=== PATIENT | female | born 1940 | race Caucasian/White ===

== ENCOUNTER 2019-06-15 05:48 | Emergency (ER) | payer MEDICARE, OTHER ==
[~2019-06-15] VITALS: Ht 162.6 cm; Wt 75.0 kg
[~2019-06-15 05:48] MED LIST: ALPR0.257 PO; AMLO5TAB4 PO; ATOR10TA PO; ATOR20TA37 PO; BISA10SU65 PR; BUPR75TA5 PO; CEFD300C37 PO; DENO60DI SC; DOCU100C33 PO; ENOX30DI3 SQ; ENOX40SY4 SQ; FLUO40CA2 PO; HYDR-3237 PO; HYDR-3240 PO; HYDR12.517 PO; METH500T7 PO; METO25TA35 PO; OLME20TA17 PO; OMEP20CA14 PO; POLY17PO5 PO; SOLI10TA2 PO; TEMA30CA PO; TRAM50TA2 PO
--- NOTE | 2019-06-15 06:08 | NUR ---
PT BIB [facility] FOR N/V/D THAT STARTED AT APPROX 0400. PT HAD 3 BOUTS OF DIARRHEA AND ABD PAIN. 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 PT HAS NO ILL CONTACTS. VSS. CALL LIGHT IN REACH
[2019-06-15] MEDS ORDERED: ONDANSETRON 2MG/ML, 2ML IVPush ONE (06:30)
[2019-06-15] MEDS ORDERED: SODIUM CHLORIDE FLUSH 10ML SYR IVF ONE (06:30)
[2019-06-15 06:46] LABS: BASOPHILS # (AUTO) 0.03 x10^3/uL (0-0.1); BASOPHILS % (AUTO) 0 % (0-1); EOSINOPHILS # (AUTO) 0.03 x10^3/uL (0-0.4); EOSINOPHILS % (AUTO) 0 % (1-7); LYMPHOCYTES # (AUTO) 1.16 x10^3/uL (1-3.4); LYMPHOCYTES % (AUTO) 10 % (22-44); MD NO; MEAN CORPUSCULAR HEMOGLOBIN 28.5 pg (27.0-34.8); MEAN CORPUSCULAR HGB CONC 32.6 g/dL (32.4-35.8); MEAN CORPUSCULAR VOLUME 87.5 fL (80-100); MEAN PLATELET VOLUME 6.7 fL (7.4-10.4); MONOCYTES # (AUTO) 0.58 x10^3/uL (0.2-0.8); MONOCYTES % (AUTO) 5 % (2-9); NEUTROPHILS # (AUTO) 9.83 x10^3/uL (1.8-6.8); NEUTROPHILS % (AUTO) 85 % (42-75); PLATELET COUNT 268 x10^3/uL (130-400); RED BLOOD COUNT 5.09 x10^6/uL (3.82-5.3); RED CELL DISTRIBUTION WIDTH 15.2 % (9.6-15.2)
[2019-06-15] MEDS ORDERED: ONDANSETRON 2MG/ML, 2ML ONE (06:47)
[2019-06-15 06:57] LABS: ALANINE AMINOTRANSFERASE 11 U/L (12-78); ALBUMIN 2.9 g/dL (3.4-5.0); ANION GAP 6 mmol/L (5-15); CALCIUM 9.6 mg/dL (8.5-10.1); CHLORIDE 107 mmol/L (98-107)
[2019-06-15 06:59] LABS: ALKALINE PHOSPHATASE 97 U/L (45-117); BILIRUBIN,TOTAL 0.4 mg/dL (0.2-1.0)
--- NOTE | 2019-06-15 07:10 | NUR ---
REPORT RECIEVED FROM LEILANI RN. PT RESTING ON GURNEY AT THIS TIME, DAUGHTER AT BEDSIDE. VSS, NAD NOTED
[2019-06-15 07:18] VITALS: BP 134/64
--- NOTE | 2019-06-15 07:45 | NUR ---
PT GIVEN WATER BY LIYA, PT ABLE TO KEEP WATER DOWN AT THIS TIME. PT TO DC HOME
--- NOTE | 2019-06-15 08:16 | NUR ---
Patient/Caregiver given discharge instructions and they have confirmed that they understand the instructions. Patient IN WHEELCHAIR, ESCORTED TO DC DESK, PT IN CARE OF DAUGHTER
== END 2019-06-15 08:18 | disposition home or self-care (01) ==
LOC: ED 07:39
DX: A08.4 Viral intestinal infection, unspecified (principal); I10 Essential (primary) hypertension; R10.9 Unspecified abdominal pain; F32.9 Major depressive disorder, single episode, unspecified; E78.5 Hyperlipidemia, unspecified
CPT/HCPCS: 36415; 80053; 83690; 85025; 96374; 99283; J2405

== ENCOUNTER 2020-11-11 02:03 | Emergency (ER) | payer MEDICARE, OTHER ==
[~2020-11-11] VITALS: Ht 162.6 cm; Wt 75.0 kg
[~2020-11-11 02:03] MED LIST changes: +HYDR-2214 PO; -HYDR-3240 PO; +METH-639 PO; -METH500T7 PO; -OMEP20CA14 PO; +OMEP20CA20 PO
[2020-11-11] MEDS ORDERED: DIPH,PERTUSS(ACELL),TET VAC/PF 0.5 ML IM-VACC ONE ×2 (02:30→03:12)
--- NOTE | 2020-11-11 02:51 | NUR ---
report recieved from slim wong. pt back from ct
--- NOTE | 2020-11-11 04:30 | NUR ---
pt snoring in gurney, resp even/unlabored, vss, pt on continuous pulse ox. awaiting erp to place stiches
[2020-11-11] MEDS ORDERED: LIDOCAINE-MPF 2% ,5ML ONE (04:43)
--- NOTE | 2020-11-11 04:48 | NUR ---
resident at bedside for sutures
[2020-11-11] MEDS ORDERED: LIDOCAINE-MPF 1%, 5ML ONE (05:23)
[2020-11-11 05:44] VITALS: BP 159/70
[2020-11-11] MEDS ORDERED: NEOSPORIN OINT. PKT 1 PACKET ONE (05:46)
--- NOTE | 2020-11-11 06:17 | NUR ---
PT'S WOUND CLEANSED WITH SALINE, BACATRACIN OINTMENT APPLIED AND WRAPPED IN GAUZE.
== END 2020-11-11 06:18 | disposition home or self-care (01) ==
LOC: ED 05:47
DX: S06.0X0A Concussion without loss of consciousness, initial encounter (principal); S01.01XA Laceration without foreign body of scalp, initial encounter; R07.89 Other chest pain; I10 Essential (primary) hypertension; E78.5 Hyperlipidemia, unspecified; Z88.2 Allergy status to sulfonamides; W06.XXXA Fall from bed, initial encounter; Y93.89 Activity, other specified; Y92.009 Unspecified place in unspecified non-institutional (private) residence as the place of occurrence of the external cause; Y99.8 Other external cause status
CPT/HCPCS: 12034; 70450; 71045; 90471; 90715; 99284

== ENCOUNTER 2020-12-25 10:46 | Emergency (ER) | payer OTHER ==
[~2020-12-25] VITALS: Ht 162.6 cm; Wt 76.4 kg
--- NOTE | 2020-12-25 11:33 | NUR ---
ASPHALT SMOOTHER: PT TO ROOM FROM LOBBY
--- NOTE | 2020-12-25 11:45 | NUR ---
PT CAME IN CO WEAKNESS AND SLURRED SPEECH X 4 DAYS. PT ALSO STATES SHES BEEN FEELING DIZZY. PT RESTING IN GURNEY ACCOMPANIED BY DAUGHTER. EKG COMPLETE. CONNECTED TO ALL MONITROING EQUIPMENT. BLANKETS PROVIDED
[2020-12-25 11:50] LABS: BASOPHILS % (AUTO) 1 % (0-1); EOSINOPHILS % (AUTO) 2 % (1-7); LYMPHOCYTES % (AUTO) 27 % (22-44); MEAN CORPUSCULAR HEMOGLOBIN 26.8 pg (27.0-34.8); MEAN CORPUSCULAR HGB CONC 32.4 g/dL (32.4-35.8); MEAN PLATELET VOLUME 7.1 fL (7.4-10.4); MONOCYTES % (AUTO) 9 % (2-9); NEUTROPHILS % (AUTO) 61 % (42-75); PLATELET COUNT 212 x10^3/uL (130-400); RED BLOOD COUNT 4.63 x10^6/uL (3.82-5.3); RED CELL DISTRIBUTION WIDTH 16.8 % (9.6-15.2)
[2020-12-25 11:57] LABS: MD NO
[2020-12-25 12:02] LABS: ALANINE AMINOTRANSFERASE 16 U/L (12-78); ALBUMIN 3.1 g/dL (3.4-5.0); ANION GAP 4 mmol/L (5-15); CALCIUM 9.1 mg/dL (8.5-10.1); CHLORIDE 105 mmol/L (98-107); CREATININE 0.72 mg/dL (0.55-1.02)
[2020-12-25 12:06] LABS: ALKALINE PHOSPHATASE 98 U/L (45-117); BILIRUBIN,TOTAL 0.4 mg/dL (0.2-1.0); TOTAL PROTEIN 7.6 g/dL (6.4-8.2); TROPONIN I 0.017 ng/mL (0.000-0.045)
--- NOTE | 2020-12-25 12:35 | NUR ---
ASSUMED CARE OF PT FROM BARBRA SHANE. PT RESTING IN [facility], MONITORING IN PLACE, DAUGHTER AT BEDSIDE, JOANN AT THIS TIME, URINE SPECIMEN COLLECTED AND WALKED TO LAB, [facility].
[2020-12-25 13:48] LABS: MICROSCOPIC AUTO
[2020-12-25] MEDS ORDERED: CEFTRIAXONE 1,000 MG in DEXTROSE 5% 50 ML IVPB ONE (14:30)
[2020-12-25 15:21] VITALS: BP 129/73
== END 2020-12-25 16:09 | disposition home or self-care (01) ==
LOC: ED 12:22
DX: N30.00 Acute cystitis without hematuria (principal); R47.81 Slurred speech; R53.1 Weakness; R00.1 Bradycardia, unspecified; R07.89 Other chest pain; E78.5 Hyperlipidemia, unspecified; I10 Essential (primary) hypertension
CPT/HCPCS: 36415; 70450; 71045; 80053; 81001; 84443; 84484; 85025; 87077; 87086; 87186; 93005; 99285